=== PATIENT | male | born 1950 | race Caucasian/White ===

== ENCOUNTER 2017-03-23 00:06 | Emergency (ER) | payer MEDICARE, BC ==
[2017-03-23 00:19] VITALS: BP 189/90
--- NOTE | 2017-03-23 01:13 | EDM.PDOC ---
ED HPI GENERAL MEDICAL PROBLEM - General Chief Complaint: Flank Pain Stated Complaint: KIDNEY STONES Time Seen by Provider: 03/23/17 00:29 Source of Information: Reports: Patient, RN Notes Reviewed History Limitations: Reports: No Limitations - History of Present Illness INITIAL COMMENTS - FREE TEXT/NARRATIVE: The patient states that he developed sudden onset severe right flank pain around 22:30 tonight. He developed nausea, but did not have emesis. He states that he drank water to stay hydrated, but was unable to get comfortable. The pain resolved about 30 minutes later, around 23:00, and has not recurred. The patient has not urinated since the episode began. The patient reports similar symptoms when he had kidney stones in 2006 and 2014. The patient's PCP is in [place], [place]. He is visiting [place] to go fishing. - Related Data Allergies Allergy/AdvReac Type Severity Reaction Status Date / Time No Known Allergies Allergy Verified 03/23/17 00:20 Home Meds: Home Meds Acitretin 25 mg PO DAILY 03/23/17 [History] Simvastatin [Zocor] 40 mg PO DAILY 03/23/17 [History] Past Medical History Cardiovascular History: Reports: High Cholesterol Gastrointestinal History: Reports: Colon Polyp Genitourinary History: Reports: Renal Calculus Endocrine/Metabolic History: Reports: Hyperparathyroidism, Obesity/BMI 30+ Oncologic (Cancer) History: Reports: Basal Cell Carcinoma, Squamous Cell Carcinoma Dermatologic History: Reports: Psoriasis - Past Surgical History HEENT Surgical History: Reports: Naso-Sinus Surgery (Deviated septum) Endocrine Surgical History: Reports: Parathyroidectomy (single lobe) Musculoskeletal Surgical History: Reports: Other (See Below) (Left 3rd finger repair) Social & Family History - Tobacco Use Smoking Status *Q: Never Smoker - Alcohol Use Alcohol Use History: Yes Alcohol Use Frequency: Socially - Recreational Drug Use Recreational Drug Use: No - Living Situation & Occupation Living situation: Reports: , with Spouse, with Family (Son) Occupation: Employed ([employer]) ED ROS GENERAL - Review of Systems Review Of Systems: See Below Constitutional: Reports: No Symptoms HEENT: Reports: No Symptoms Respiratory: Reports: No Symptoms Cardiovascular: Reports: No Symptoms Endocrine: Reports: No Symptoms GI/Abdominal: Reports: No Symptoms : Reports: No Symptoms Musculoskeletal: Reports: No Symptoms Skin: Reports: No Symptoms Neurological: Reports: No Symptoms Psychiatric: Reports: No Symptoms Hematologic/Lymphatic: Reports: No Symptoms Immunologic: Reports: No Symptoms ED EXAM, RENAL/ - Physical Exam Exam: See Below Exam Limited By: No Limitations General Appearance: Alert, WD/WN, No Apparent Distress Eye Exam: Bilateral Eye: Normal Inspection Ears: Normal External Exam, Hearing Grossly Normal Nose: Normal Inspection, No Blood Throat/Mouth: Normal Inspection, Normal Lips, Normal Voice, No Airway Compromise Head: Atraumatic, Normocephalic Neck: Normal Inspection, Full Range of Motion Respiratory/Chest: No Respiratory Distress, Lungs Clear, Normal Breath Sounds, No Accessory Muscle Use Cardiovascular: Normal Peripheral Pulses, Regular Rate, Rhythm, No Gallop, No JVD, No Murmur, No Rub GI/Abdominal: Normal Bowel Sounds, Soft, Non-Tender, No Organomegaly, No Distention, No Abnormal Bruit, No Mass, Other (Obese) (Male) Exam: Deferred Rectal (Males) Exam: Deferred Back Exam: Normal Inspection, Full Range of Motion. No: CVA Tenderness (L), CVA Tenderness (R) Extremities: Normal Inspection, Normal Range of Motion, No Pedal Edema, Normal Capillary Refill Neurological: Alert, Oriented, Normal Cognition, No Motor/Sensory Deficits Psychiatric: Normal Affect Skin Exam: Warm, Dry, Intact, Normal Color, No Rash Lymphatic: No Adenopathy Course - Vital Signs Last Recorded V/S: Last Vital Signs Temp 37.2 C 03/23/17 00:18 Pulse 75 03/23/17 00:18 Resp 16 03/23/17 00:18 BP 189/90 H 03/23/17 00:18 Pulse Ox 96 03/23/17 00:18 - Orders/Labs/Meds Orders: Active Orders 24 hr Category Date Time Status Strain Urine [RC] ASDIRECTED Care 03/23/17 00:40 Active Labs: Laboratory Tests 03/23/17 Range/Units 00:54 Urine Color Yellow (Yellow) Urine Appearance Clear (Clear) Urine pH 6.5 (5.0-8.0) Ur Specific [place] 1.015 (1.005-1.030) Urine Protein Negative (Negative) Urine Glucose (UA) Negative (Negative) Urine Ketones Trace H (Negative) Urine Occult Blood Trace-lysed H (Negative) Urine Nitrite Negative (Negative) Urine Bilirubin Negative (Negative) Urine Urobilinogen 0.2 (0.2-1.0) Ur Leukocyte Esterase Negative (Negative) Urine RBC 0-5 (0-5) /hpf Urine WBC 0-5 (0-5) /hpf Ur Epithelial Cells 0-5 (0-5) /hpf Urine Bacteria Not seen (FEW) /hpf Urine Mucus Not seen (FEW) /hpf - Re-Assessments/Exams Free Text/Narrative Re-Assessment/Exam: 03/23/17 01:12 The patient's right flank pain resolved around 23:00, and has not recurred. Clinical, the patient has likely passed a kidney stone. I had him urinate through a strainer, but no stone was recovered. 03/23/17 01:48 The patient's urinalysis shows only trace lysed blood, with 0-5 RBCs on microscopy. The patient states that his pain has not recurred. Departure - Departure Time of Disposition: 01:48 Disposition: Home, Self-Care 01 Condition: Good Clinical Impression: Ureterolithiasis - Discharge Information Forms: ED Department Discharge Additional Instructions: You were seen in the emergency room for right flank pain that resolved on its own. While it cannot be proven, you MOST LIKELY passed a kidney stone. No further treatment is needed. If your symptoms return, or for any other problems, please do not hesitate to return to the ER. - My Orders Last 24 Hours: My Active Orders 03/23/17 00:40 Strain Urine [RC] ASDIRECTED - Assessment/Plan Last 24 Hours: My Active Orders 03/23/17 00:40 Strain Urine [RC] ASDIRECTED
== END 2017-03-23 01:57 | disposition home or self-care (01) ==
LOC: JD.ED 00:06
DX: N20.1 Calculus of ureter (principal); E78.00 Pure hypercholesterolemia, unspecified; E21.3 Hyperparathyroidism, unspecified; E66.9 Obesity, unspecified; L40.9 Psoriasis, unspecified; Z85.828 Personal history of other malignant neoplasm of skin; Z98.890 Other specified postprocedural states; Z79.899 Other long term (current) drug therapy; Z87.442 Personal history of urinary calculi
CPT/HCPCS: 81001; 99282; 99284